=== PATIENT | female | born 1995 | race Caucasian/White ===

== ENCOUNTER → 2019-04-03 | Outpatient (CLI) | payer OTHER ==
[~2019-04-03] MED LIST: CATHETER FLUSH 10 ML SYR IV PRN; HOLD METFORMIN - RECEIVED CONTRAST 20 ML VIAL IV SCH; IOHEXOL 350 MG/ML 100 ML (OMNIPAQUE 350) VIAL IV ONE; NS 100 ML (IVPB) BAG IV ONE
--- NOTE | 2019-04-03 13:31 | Diagnostic Imaging Report ---
PROCEDURE: CT abdomen and pelvis with contrast. TECHNIQUE: Multiple contiguous axial images were obtained through the abdomen and pelvis after administration of intravenous contrast. Auto Exposure Controls were utilized during the CT exam to meet ALARA standards for radiation dose reduction. INDICATION: Right lower quadrant pain and periumbilical pain for two weeks as well as fever. COMPARISON: No prior studies are available for comparison. FINDINGS: The lung bases are clear. The liver contains a small low density in the anterior right lobe of 12 mm in size. This is too small to characterize but most likely represents a cyst. Tiny low density more posteriorly in the inferior right lobe is also seen measuring 8 mm. The gallbladder is unremarkable. There is no biliary ductal dilatation. The pancreas and spleen are unremarkable. No adrenal mass is detected. The kidneys are unremarkable. Aorta is nonaneurysmal. The small and large bowel loops are normal in caliber. There is no obstruction. Appendix does show some minimal mucosal enhancement but no thickening of the appendix or periappendiceal inflammation is identified. There are mildly prominent lymph nodes identified in the central mesentery and right lower quadrant, perhaps on the basis of mesenteric adenitis. No free fluid or fluid collection is seen. The uterus and bladder are unremarkable. IMPRESSION: 1. No CT evidence of acute appendicitis. There are mildly prominent lymph nodes in the central mesentery and right lower quadrant, perhaps on the basis of mesenteric adenitis. The study is otherwise unremarkable. Dictated by: Dictated on workstation # [id number]
== END ==
LOC: RAD FS 12:22
PROVIDERS: ATTEND Nurse Practitioner Family
DX: R59.0 Localized enlarged lymph nodes (principal); R10.31 Right lower quadrant pain; R10.33 Periumbilical pain
CPT/HCPCS: 74177